=== PATIENT | female | born 1950 | race Hispanic/Latino ===

== ENCOUNTER 2019-06-14 11:52 | Observation (INO) | payer MEDICARE ==
--- NOTE | 2019-06-14 14:26 | XRay Report ---
CHEST 1 VIEW INDICATION: chest pain. COMPARISON: None at this facility FINDINGS: Support devices: None. Heart: Moderate cardiomegaly. A pericardial effusion cannot be excluded. Lungs/Pleura: There is moderate central pulmonary venous congestion. The lungs are grossly clear. No large pleural effusion, consolidation or pneumothorax is identified. Additional findings: None. IMPRESSION: Cardiomegaly and pulmonary venous congestion. Signer Name: Gautam Michele Jr, MD Signed: 06/14/2019 2:21 PM Workstation Name: [id number]
[2019-06-14 14:28] LABS: Mean Corpuscular HGB Conc 29 % (30-34); Mean Corpuscular Volume 70 fl (79-97); Platelet Count 122 K/mm3 (140-440); Red Blood Count 4.05 M/mm3 (3.65-5.03)
[2019-06-14 14:36] LABS: Hematocrit 28.4 % (30.3-42.9); Hemoglobin 8.2 gm/dl (10.1-14.3); Red Cell Distribution Width 26.1 % (13.2-15.2)
[2019-06-14 14:38] LABS: INR 1.3 (0.87-1.13)
[2019-06-14 14:51] LABS: Partial Thromboplastin Time 47.6 Sec. (24.2-36.6)
[2019-06-14 14:55] LABS: BUN/Creatinine Ratio 34; Blood Urea Nitrogen 17 mg/dL (7-17); Calcium 8.5 mg/dL (8.4-10.2); Hemolysis Index 13
[2019-06-14 15:10] LABS: Anisocytosis 2+; Basophils % (Manual) 0 % (0.0-1.8); Hypochromasia 2+; Total Cells Counted 100
[2019-06-14 15:11] LABS: Platelet Estimate Consistent w Auto; Target Cells Few
--- NOTE | 2019-06-14 16:37 | Emergency Department Report ---
ED Chest Pain HPI - General Chief Complaint: Chest Pain Stated Complaint: CHEST PAIN Time Seen by Provider: 06/14/19 13:28 Source: EMS Mode of arrival: Stretcher Limitations: Other - History of Present Illness Initial Comments: 69-year-old [facility]. Patient states pain has been ongoing for 3 days. History is limited due to some expressive aphasia secondary to previous CVA. Patient denies any shortness of breath. MD Complaint: chest pain -: days(s) (3) Onset: during rest Pain Location: left chest Pain Radiation: none Severity scale (0 -10): 5 Quality: other (unable to describe) re: denies: vomting, dyspnea Other Symptoms: denies: cough - Related Data Home Medications Medication Instructions Recorded Confirmed Last Taken Apixaban [Eliquis] 2.5 mg PO BID 06/14/19 06/14/19 Unknown Carvedilol [Coreg] 6.25 mg PO QDAY 06/14/19 06/14/19 Unknown Furosemide [Lasix] 20 mg PO QDAY 06/14/19 06/14/19 Unknown Gabapentin [Neurontin] 300 mg PO Q8HR 06/14/19 06/14/19 Unknown Insulin Aspart [Novolog] 200 units SQ QPM 06/14/19 06/14/19 06/13/19 Losartan [Cozaar] 100 mg PO QDAY 06/14/19 06/14/19 Unknown Midodrine [Proamatine] 5 mg PO TID 06/14/19 06/14/19 Unknown Pantoprazole [Protonix] 40 mg PO QDAY 06/14/19 06/14/19 Unknown Potassium Chloride [K-Dur] 10 meq PO QDAY 06/14/19 06/14/19 Unknown levETIRAcetam [Keppra TAB] 500 mg PO BID 06/14/19 06/14/19 Unknown Allergies Allergy/AdvReac Type Severity Reaction Status Date / Time aspirin Allergy Unknown Verified 06/14/19 12:03 Heart Score - HEART Score History: Slightly suspicious EKG: Non-specific Age: 45-65 Risk factors: 1-2 risk factors Troponin: < normal limit HEART Score: 3 ED Review of Systems ROS: Stated complaint: CHEST PAIN Other details as noted in HPI Comment: All other systems reviewed and negative Constitutional: denies: fever Respiratory: denies: shortness of breath Cardiovascular: chest pain ED Past Medical Hx - Past Medical History Hx Congestive Heart Failure: Yes Hx Seizures: Yes Additional medical history: afib - Social History Smoking Status: Never Smoker - Medications Home Medications: Home Medications Medication Instructions Recorded Confirmed Last Taken Type Apixaban [Eliquis] 2.5 mg PO BID 06/14/19 06/14/19 Unknown History Carvedilol [Coreg] 6.25 mg PO QDAY 06/14/19 06/14/19 Unknown History Furosemide [Lasix] 20 mg PO QDAY 06/14/19 06/14/19 Unknown History Gabapentin [Neurontin] 300 mg PO Q8HR 06/14/19 06/14/19 Unknown History Insulin Aspart [Novolog] 200 units SQ QPM 06/14/19 06/14/19 06/13/19 History Losartan [Cozaar] 100 mg PO QDAY 06/14/19 06/14/19 Unknown History Midodrine [Proamatine] 5 mg PO TID 06/14/19 06/14/19 Unknown History Pantoprazole [Protonix] 40 mg PO QDAY 06/14/19 06/14/19 Unknown History Potassium Chloride [K-Dur] 10 meq PO QDAY 06/14/19 06/14/19 Unknown History levETIRAcetam [Keppra TAB] 500 mg PO BID 06/14/19 06/14/19 Unknown History ED Physical Exam - General Limitations: Other General appearance: alert, in no apparent distress - Head Head exam: Present: atraumatic, normocephalic - Eye Eye exam: Present: normal appearance, PERRL, EOMI - ENT ENT exam: Present: mucous membranes moist - Neck Neck exam: Present: normal inspection - Respiratory Respiratory exam: Present: normal lung sounds bilaterally. Absent: respiratory distress - Cardiovascular Cardiovascular Exam: Present: regular rate, normal rhythm - GI/Abdominal GI/Abdominal exam: Present: soft. Absent: distended, tenderness - Neurological Exam Neurological exam: Present: alert. Absent: CN II-XII intact (expressive aphasia present) - Psychiatric Psychiatric exam: Present: normal affect, normal mood - Skin Skin exam: Present: warm, dry, intact, normal color ED Course Vital Signs 06/14/19 06/14/19 06/14/19 12:03 12:16 16:25 Temperature 98.5 F 98.3 F 98.0 F Pulse Rate 77 64 58 L Respiratory 19 25 H 18 Rate Blood Pressure 138/80 Blood Pressure 109/53 143/66 [Left] O2 Sat by Pulse 97 97 99 Oximetry 06/14/19 06/14/19 16:53 20:27 Temperature 97.7 F Pulse Rate 68 Respiratory 20 Rate Blood Pressure 126/66 Blood Pressure [Left] O2 Sat by Pulse 98 98 Oximetry ED Medical Decision Making - Lab Data Result diagrams: 06/14/19 14:14 06/14/19 14:14 - EKG Data -: EKG Interpreted by Pr EKG shows normal: axis, QRS complexes, ST-T waves Rate: normal - EKG Data Interpretation: other (Afib present) - Radiology Data Radiology results: report reviewed, image reviewed - Medical Decision Making - pt reports chest pain x 3 days - hx of [facility] - EKG shows Afib (which is chronic) and no ST changes - trop negative -vitals normal - will admit to hospitalist for further evaluation - Differential Diagnosis ACS, pulm edema, pneumonia Critical care attestation.: If time is entered above; I have spent that time in minutes in the direct care of this critically ill patient, excluding procedure time. ED Disposition Clinical Impression: Acute chest pain Disposition: DC-09 OP ADMIT IP TO THIS HOSP Is pt being admited?: Yes Condition: Stable Time of Disposition: 16:37
[2019-06-14] MEDS ORDERED: SODIUM CHLORIDE FLUSH SYRINGE 10 ML IV PRN (21:12)
[2019-06-14] MEDS ORDERED: TYLENOL PO PRN (21:12)
[2019-06-14] MEDS ORDERED: DILAUDID IV PRN (21:12)
[2019-06-14] MEDS ORDERED: ZOFRAN IV PRN (21:12)
[2019-06-14] MEDS ORDERED: NACL 0.9% 1000 ML 1,000 ML IV SCH (22:00)
[2019-06-14] MEDS: PEPCID IV SCH (22:26)
[2019-06-14] MEDS: PROTONIX PO SCH (22:26)
[2019-06-14] MEDS: LASIX PO SCH (22:27)
[2019-06-14] MEDS: COREG PO SCH (22:27)
[2019-06-14] MEDS: ELIQUIS PO SCH (22:27)
[2019-06-14] MEDS: KEPPRA PO SCH (22:27)
[2019-06-14] MEDS: K-DUR PO SCH (22:27)
[2019-06-14] MEDS: NEURONTIN PO SCH (22:27)
[2019-06-15] MEDS: HumaLOG SUB-Q SCH ×5 (00:38→21:57)
[2019-06-15] MEDS: SODIUM CHLORIDE FLUSH SYRINGE 10 ML IV SCH ×3 (01:06→21:57)
[2019-06-15] MEDS: PERCOCET 5/325 PO PRN ×2 (03:40→10:26)
[2019-06-15] MEDS: COZAAR PO SCH ×2 (03:46→10:18)
--- NOTE | 2019-06-15 04:02 | History and Physical Report ---
CHIEF COMPLAINT: Left-sided chest pain for 3 days. HISTORY OF PRESENT ILLNESS: A 69-year-old female from [facility] with history of hypertension, atrial fibrillation, insulin-dependent diabetes and GERD, comes in for left-sided chest pain of 3 days' duration. Chest pain is intermittent in nature. No diaphoresis, no palpitations. Poor historian. No exacerbating or relieving factors. PAST MEDICAL HISTORY: Significant for hypertension, congestive heart failure, seizure disorder, atrial fibrillation. PAST SURGICAL HISTORY: Unavailable. SOCIAL HISTORY: Does not smoke. FAMILY HISTORY: Hypertension. CURRENT MEDICATIONS: On the chart. REVIEW OF SYSTEMS: Significant for left-sided chest pain of 3 days' duration. Otherwise, review of systems negative. PHYSICAL EXAMINATION: GENERAL: Elderly female, cooperative during examination. VITAL SIGNS: Blood pressure is 143/60, temperature is 98.3, pulse is 64, respirations 25. HEENT: Unremarkable. Pupils equal and reactive. NECK: Supple, no lymphadenopathy, no thyromegaly. LUNGS: Clear to auscultation and percussion. Good air entry. CARDIOVASCULAR: S1, S2 heard. No gallop, no murmur, no rub. Apical impulse in left fifth intercostal space and midclavicular line. ABDOMEN: Soft and benign. No hepatosplenomegaly. No guarding, no rigidity. EXTREMITIES: Good pedal pulses. No pedal edema. CENTRAL NERVOUS SYSTEM: Alert and oriented x 4, nonfocal exam. Slightly dysphagic. LABORATORY DATA: Significant for white count of 4400, H and H is 8.2 and 28.4, platelet count is 122,000. BUN and creatinine is 17 and 0.5. Troponins; first two troponins are negative. EKG shows nonspecific ST-T wave changes. Heart rate of 76 per minute. Chest x-ray shows no acute abnormality. ASSESSMENT AND PLAN: 1. Chest pain, rule out myocardial infarction protocol. Serial Lexiscan in the morning. 2. Insulin-dependent diabetes. Continue insulin and coverage. 3. Hypertension. Continue antihypertensives in the form of losartan. 4. Gastroesophageal reflux disease. Continue Protonix. 5. Peripheral neuropathy. Continue gabapentin. 6. Congestive heart failure. Continue Lasix. 7. Anticoagulation. Continue Eliquis. 8. Deep venous thrombosis prophylaxis is not necessary. JOB# [id number] MATTEO/JOSE
[2019-06-15 05:02] LABS: Hematocrit 26.9 % (30.3-42.9); Hemoglobin 8.2 gm/dl (10.1-14.3); Mean Corpuscular HGB Conc 30 % (30-34); Platelet Count 128 K/mm3 (140-440); Red Blood Count 3.92 M/mm3 (3.65-5.03)
[2019-06-15 05:04] LABS: Mean Corpuscular Volume 69 fl (79-97); Red Cell Distribution Width 25.8 % (13.2-15.2)
[2019-06-15] MEDS: NEURONTIN PO SCH ×3 (05:53→21:56)
[2019-06-15 06:29] LABS: Alanine Aminotransferase 6 units/L (7-56); Albumin 3.2 g/dL (3.9-5); BUN/Creatinine Ratio 30; Blood Urea Nitrogen 15 mg/dL (7-17); Calcium 8.8 mg/dL (8.4-10.2); Hemolysis Index 1
[2019-06-15] MEDS ORDERED: LEXISCAN IV ONE (07:14)
[2019-06-15 07:21] LABS: Basophils % (Manual) 0 % (0.0-1.8); Total Cells Counted 100
[2019-06-15 07:22] LABS: Anisocytosis 2+; Hypochromasia 2+; Target Cells Few
[2019-06-15 07:23] LABS: Platelet Estimate Consistent w Auto
[2019-06-15] MEDS: PEPCID IV SCH (10:17)
[2019-06-15] MEDS: KEPPRA PO SCH ×2 (10:17→21:56)
[2019-06-15] MEDS: COREG PO SCH (10:18)
[2019-06-15] MEDS: PROTONIX PO SCH (10:19)
[2019-06-15] MEDS: ELIQUIS PO SCH ×2 (10:19→21:56)
[2019-06-15] MEDS: K-DUR PO SCH (10:19)
[2019-06-15] MEDS: LASIX PO SCH (10:21)
[2019-06-15] MEDS: PROAMATINE PO SCH ×3 (10:27→21:56)
--- NOTE | 2019-06-15 18:41 | Progress Note ---
Assessment and Plan Assessment and plan: Chest pain daughter at bedside states she was just discharged from [facility] Obtain records Consult cardiology Hypertension Monitor BP Cont Losartan Seizure disorder Cont Keppra Monitor Diabetes mellitus type 2. Fingerstick glucose q ac and hs Atrial fibrillation On Eliquis Full code status Discussed with patient and daughter at bedside. History Interval history: Chest pain Hospitalist Physical - Physical exam Narrative exam: Gen: Not in acute distress, lying in bed, morbidly obese HEENT: Normocephalic, atraumatic Neck: supple, no JVD Heart: S1 and S2 reg, no murmurs, rubs or gallop Lungs: Clear, no crackles, no rhonchi Abd: soft, non tender, non distended, normal BS, Ext: No edema, no clubbing, no cyanosis Neuro: Awake,alert, - Constitutional Vitals: Temp Pulse Resp BP Pulse Ox 98.3 F 74 18 117/64 87 06/15/19 12:01 06/15/19 10:18 06/15/19 12:01 06/15/19 12:01 06/15/19 03:37 Results - Labs CBC & Chem 7: 06/16/19 05:31 06/16/19 05:31 Labs: Laboratory Last Values WBC 4.4 K/mm3 (4.5-11.0) L 06/15/19 04:04 RBC 3.92 M/mm3 (3.65-5.03) 06/15/19 04:04 Hgb 8.2 gm/dl (10.1-14.3) L 06/15/19 04:04 Hct 26.9 % (30.3-42.9) L 06/15/19 04:04 MCV 69 fl (79-97) L 06/15/19 04:04 MCH 21 pg (28-32) L 06/15/19 04:04 MCHC 30 % (30-34) 06/15/19 04:04 RDW 25.8 % (13.2-15.2) H 06/15/19 04:04 Plt Count 128 K/mm3 (140-440) L 06/15/19 04:04 Add Manual Diff Complete 06/15/19 04:04 Total Counted 100 06/15/19 04:04 Seg Neuts % (Manual) 65.0 % (40.0-70.0) 06/15/19 04:04 0 % 06/15/19 04:04 29.0 % (13.4-35.0) 06/15/19 04:04 Reactive Lymphs % (Man) 0 % 06/15/19 04:04 3.0 % (0.0-7.3) 06/15/19 04:04 3.0 % (0.0-4.3) 06/15/19 04:04 0 % (0.0-1.8) 06/15/19 04:04 0 % 06/15/19 04:04 0 % 06/15/19 04:04 0 % 06/15/19 04:04 0 % 06/15/19 04:04 Nucleated RBC % Not Reportable 06/15/19 04:04 Seg Neutrophils # Man 2.9 K/mm3 (1.8-7.7) 06/15/19 04:04 Band Neutrophils # 0.0 K/mm3 06/15/19 04:04 1.3 K/mm3 (1.2-5.4) 06/15/19 04:04 Abs React Lymphs (Man) 0.0 K/mm3 06/15/19 04:04 0.1 K/mm3 (0.0-0.8) 06/15/19 04:04 0.1 K/mm3 (0.0-0.4) 06/15/19 04:04 0.0 K/mm3 (0.0-0.1) 06/15/19 04:04 0.0 K/mm3 06/15/19 04:04 0.0 K/mm3 06/15/19 04:04 0.0 K/mm3 06/15/19 04:04 Blast Cells # 0.0 K/mm3 06/15/19 04:04 WBC Morphology Not Reportable 06/15/19 04:04 Hypersegmented Neuts Not Reportable 06/15/19 04:04 Hyposegmented Neuts Not Reportable 06/15/19 04:04 Hypogranular Neuts Not Reportable 06/15/19 04:04 Not Reportable 06/15/19 04:04 Not Reportable 06/15/19 04:04 Not Reportable 06/15/19 04:04 Not Reportable 06/15/19 04:04 Not Reportable 06/15/19 04:04 Not Reportable 06/15/19 04:04 Consistent w auto 06/15/19 04:04 Not Reportable 06/15/19 04:04 Plt Clumps, EDTA Not Reportable 06/15/19 04:04 Not Reportable 06/15/19 04:04 Not Reportable 06/15/19 04:04 Not Reportable 06/15/19 04:04 Plt Morphology Comment Not Reportable 06/15/19 04:04 RBC Morphology Not Reportable 06/15/19 04:04 Dimorphic RBCs Not Reportable 06/15/19 04:04 Not Reportable 06/15/19 04:04 2+ 06/15/19 04:04 Not Reportable 06/15/19 04:04 2+ 06/15/19 04:04 Not Reportable 06/15/19 04:04 Not Reportable 06/15/19 04:04 Not Reportable 06/15/19 04:04 Not Reportable 06/15/19 04:04 Not Reportable 06/15/19 04:04 Few 06/15/19 04:04 Not Reportable 06/15/19 04:04 Not Reportable 06/15/19 04:04 Not Reportable 06/15/19 04:04 Not Reportable 06/15/19 04:04 Not Reportable 06/15/19 04:04 Not Reportable 06/15/19 04:04 Not Reportable 06/15/19 04:04 Not Reportable 06/15/19 04:04 Not Reportable 06/15/19 04:04 Acanthocytes (Spur) Not Reportable 06/15/19 04:04 Rouleaux Not Reportable 06/15/19 04:04 Not Reportable 06/15/19 04:04 Not Reportable 06/15/19 04:04 Not Reportable 06/15/19 04:04 Not Reportable 06/15/19 04:04 Hem Pathologist Commnt No 06/15/19 04:04 PT 15.9 Sec. (12.2-14.9) H 06/14/19 14:14 INR 1.30 (0.87-1.13) H 06/14/19 14:14 APTT 47.6 Sec. (24.2-36.6) H 06/14/19 14:14 577.97 ng/mlDDU (0-234) H 06/15/19 12:26 Sodium 147 mmol/L (137-145) H 06/15/19 04:04 Potassium 4.4 mmol/L (3.6-5.0) 06/15/19 04:04 Chloride 102.7 mmol/L (98-107) 06/15/19 04:04 Carbon Dioxide 35 mmol/L (22-30) H 06/15/19 04:04 14 mmol/L 06/15/19 04:04 BUN 15 mg/dL (7-17) 06/15/19 04:04 0.5 mg/dL (0.7-1.2) L 06/15/19 04:04 Estimated GFR > 60 ml/min 06/15/19 04:04 30 % 06/15/19 04:04 Glucose 104 mg/dL (65-100) H 06/15/19 04:04 5.9 % (4-6) 06/14/19 23:08 Calcium 8.8 mg/dL (8.4-10.2) 06/15/19 04:04 0.40 mg/dL (0.1-1.2) 06/15/19 04:04 AST 12 units/L (5-40) 06/15/19 04:04 ALT 6 units/L (7-56) L 06/15/19 04:04 64 units/L (35-129) 06/15/19 04:04 < 0.010 ng/mL (0.00-0.029) 06/15/19 04:04 7.2 g/dL (6.3-8.2) 06/15/19 04:04 3.2 g/dL (3.9-5) L 06/15/19 04:04 0.8 % 06/15/19 04:04 Active Medications - Current Medications Current Medications: Generic Name Dose Route Start Last Admin Trade Name Freq PRN Reason Stop Dose Admin Acetaminophen 650 mg 06/14/19 21:12 Tylenol PO Q4H PRN Pain MILD(1-3)/Fever >100.5/PERRY Apixaban 2.5 mg 06/14/19 22:00 06/15/19 10:19 Eliquis PO 2.5 mg BID THONY Administration Protocol Carvedilol 6.25 mg 06/14/19 22:00 06/15/19 10:18 Coreg PO 6.25 mg QDAY THONY Administration Furosemide 20 mg 06/14/19 22:00 06/15/19 10:21 Lasix PO 20 mg QDAY THONY Administration Gabapentin 300 mg 06/14/19 22:00 06/15/19 05:53 Neurontin PO 300 mg Q8HR THONY Administration Hydromorphone HCl 0.5 mg 06/14/19 21:12 Dilaudid IV Q3H PRN Pain , Severe (7-10) Insulin Human Lispro 0 unit 06/14/19 22:00 06/15/19 08:00 Humalog SUB-Q Not Given ACHS [facility] Protocol Levetiracetam 500 mg 06/14/19 22:00 06/15/19 10:17 Keppra PO 500 mg BID THONY Administration Losartan Potassium 100 mg 06/14/19 21:15 06/15/19 10:18 Cozaar PO 100 mg QDAY THONY Administration Midodrine 5 mg 06/15/19 08:00 06/15/19 10:27 Proamatine PO 5 mg TID THONY Administration Ondansetron HCl 4 mg 06/14/19 21:12 Zofran IV Q8H PRN Nausea And Vomiting Oxycodone/Acetaminophen 1 tab 06/14/19 21:12 06/15/19 10:26 Percocet 5/325 PO 1 tab Q6H PRN Administration Pain, Moderate (4-6) Pantoprazole Sodium 40 mg 06/14/19 22:00 06/15/19 10:19 Protonix PO 40 mg QDAY THONY Administration Potassium Chloride 10 meq 06/14/19 22:00 06/15/19 10:19 K-Dur PO 10 meq QDAY THONY Administration Sodium Chloride 10 ml 06/14/19 22:00 06/15/19 10:20 Sodium Chloride Flush Syringe 10 Ml IV 10 ml BID THONY Administration Sodium Chloride 10 ml 06/14/19 21:12 Sodium Chloride Flush Syringe 10 Ml IV PRN PRN LINE FLUSH Nutrition/Malnutrition Assess - Dietary Evaluation Nutrition/Malnutrition Findings: Nutrition Notes Start: 06/15/19 17:29 Freq: Status: Active Protocol: Document 06/15/19 17:29 RM (Rec: 06/15/19 18:00 RM [id number]) Nutrition Notes 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 Dev 15 points. Pt confused at time of visit. Per tech pt is eating 100% of her meals. Percent of energy/protein needs met: 100%/100% Burn Absent Trauma Absent #1 Nutrition Diagnosis Increased nutrient needs ( specify in comment below) Comments: glutamine, arginine Etiology wound healing As Evidenced by Signs and Symptoms L & R leg wounds Is patient on ventilator? No Is Patient Ambulatory and/or Out of Bed No REE-([facility]-confined to bed) 2488.488 Kcal/Kg value to use for calculation 13 Approximate Energy Requirements Using 1986 kcal/Kg Calculation Used for Recommendations Kcal/kg Additional Notes Protein Needs: 71-89g (1.2-1. 5g/kg IBW) Fluid Needs: 1 ml/kcal Nutrition Intervention Change Diet Order: Cardiac/Consistent CHO Add Supplement/Snack (indicate name/kcal Julio César BID /protein ) Provides kCal: 190 Provides Protein (gm) 5 Goal #1 Continue to meet at least 75% of calorie and protein needs via PO intakes Goal #2 Julio César intake Anticipated Discharge Needs: Cardiac/Consistent CHO diet Follow-Up By: 06/17/19 Additional Comments Follow to confirm PO intake, Julio César intakes
[2019-06-16] MEDS: NEURONTIN PO SCH (05:06)
[2019-06-16 06:20] LABS: BUN/Creatinine Ratio 30; Blood Urea Nitrogen 12 mg/dL (7-17); Calcium 8.4 mg/dL (8.4-10.2); Hemolysis Index 37
[2019-06-16 06:38] LABS: Hematocrit 26.7 % (30.3-42.9); Hemoglobin 8.1 gm/dl (10.1-14.3); Mean Corpuscular HGB Conc 31 % (30-34); Platelet Count 124 K/mm3 (140-440); Red Blood Count 3.88 M/mm3 (3.65-5.03)
[2019-06-16 06:39] LABS: Mean Corpuscular Volume 69 fl (79-97); Red Cell Distribution Width 25.9 % (13.2-15.2)
[2019-06-16] MEDS: HumaLOG SUB-Q SCH ×2 (08:00→12:00)
[2019-06-16] MEDS: COZAAR PO SCH (10:39)
[2019-06-16] MEDS: PROTONIX PO SCH (10:40)
[2019-06-16] MEDS: LASIX PO SCH (10:40)
[2019-06-16] MEDS: ELIQUIS PO SCH (10:40)
[2019-06-16] MEDS: COREG PO SCH (10:40)
[2019-06-16] MEDS: KEPPRA PO SCH (10:40)
[2019-06-16] MEDS: K-DUR PO SCH (10:40)
[2019-06-16] MEDS: SODIUM CHLORIDE FLUSH SYRINGE 10 ML IV SCH (10:43)
[2019-06-16] MEDS: PROAMATINE PO SCH (10:46)
--- NOTE | 2019-06-16 13:43 | Consultation ---
History of Present Illness Consult date: 06/16/19 Consult reason: chest pain History of present illness: This is a morbidly obese woman with confusion. History is unobtainable. Review of chart reports a history of chronic diastolic congestive heart failure and chronic atrial fibrillation. She is on low dose Eliquis for oral anticoagulation. Her latest ischemic cardiac evaluation was done in 2008. Patient underwent a cardiac cath that showed normal coronaries, ejection fraction 40-50%. Of note, patient was just discharged from [facility]. During that admission an echocardiogram showed a normal left ventricular systolic function, ejection fraction greater than 55%. Co-morbidites includes prior CVA, Diabetes and hypotension on Midodrine for management. The patient was sent from the [facility] with reports of chest pain. Cycled troponins were normal and her ECG is atrial fibrillation with a well controlled ventricular rate. Patient was admitted by the hospitalist team and was ordered to have a persantine thallium stress test. This was canceled as patient abdominal girth exceeds the width for the camera. Cardiac consultation has been requested. Today, patient is resting comfortably with confusion. She denies chest pain and shortness of breath. Afib with a well controlled ventricular rate on telemetry strips. Medications and Allergies Allergies Allergy/AdvReac Type Severity Reaction Status Date / Time aspirin Allergy Unknown Verified 06/14/19 12:03 Home Medications Medication Instructions Recorded Confirmed Last Taken Type Apixaban [Eliquis] 2.5 mg PO BID 06/14/19 06/14/19 Unknown History Carvedilol [Coreg] 6.25 mg PO QDAY 06/14/19 06/14/19 Unknown History Furosemide [Lasix] 20 mg PO QDAY 06/14/19 06/14/19 Unknown History Gabapentin [Neurontin] 300 mg PO Q8HR 06/14/19 06/14/19 Unknown History Insulin Aspart [Novolog] 200 units SQ QPM 06/14/19 06/14/19 06/13/19 History Losartan [Cozaar] 100 mg PO QDAY 06/14/19 06/14/19 Unknown History Midodrine [Proamatine] 5 mg PO TID 06/14/19 06/14/19 Unknown History Pantoprazole [Protonix] 40 mg PO QDAY 06/14/19 06/14/19 Unknown History Potassium Chloride [K-Dur] 10 meq PO QDAY 06/14/19 06/14/19 Unknown History levETIRAcetam [Keppra TAB] 500 mg PO BID 06/14/19 06/14/19 Unknown History Active Meds: Active Medications Acetaminophen (Tylenol) 650 mg PO Q4H PRN PRN Reason: Pain MILD(1-3)/Fever >100.5/PERRY Apixaban (Eliquis) 2.5 mg PO BID [facility]; Protocol Last Admin: 06/16/19 10:40 Dose: 2.5 mg Documented by: Carvedilol (Coreg) 6.25 mg PO QDAY [facility] Last Admin: 06/16/19 10:40 Dose: 6.25 mg Documented by: Furosemide (Lasix) 20 mg PO QDAY [facility] Last Admin: 06/16/19 10:40 Dose: 20 mg Documented by: Gabapentin (Neurontin) 300 mg PO Q8HR [facility] Last Admin: 06/16/19 05:06 Dose: 300 mg Documented by: Hydromorphone HCl (Dilaudid) 0.5 mg IV Q3H PRN PRN Reason: Pain , Severe (7-10) Insulin Human Lispro (Humalog) 0 unit SUB-Q ACHS [facility]; Protocol Last Admin: 06/16/19 08:00 Dose: Not Given Documented by: Levetiracetam (Keppra) 500 mg PO BID [facility] Last Admin: 06/16/19 10:40 Dose: 500 mg Documented by: Losartan Potassium (Cozaar) 100 mg PO QDAY [facility] Last Admin: 06/16/19 10:39 Dose: 100 mg Documented by: Midodrine (Proamatine) 5 mg PO TID [facility] Last Admin: 06/16/19 10:46 Dose: 5 mg Documented by: Ondansetron HCl (Zofran) 4 mg IV Q8H PRN PRN Reason: Nausea And Vomiting Oxycodone/Acetaminophen (Percocet 5/325) 1 tab PO Q6H PRN PRN Reason: Pain, Moderate (4-6) Last Admin: 06/15/19 10:26 Dose: 1 tab Documented by: Pantoprazole Sodium (Protonix) 40 mg PO QDAY [facility] Last Admin: 06/16/19 10:40 Dose: 40 mg Documented by: Potassium Chloride (K-Dur) 10 meq PO QDAY [facility] Last Admin: 06/16/19 10:40 Dose: 10 meq Documented by: Sodium Chloride (Sodium Chloride Flush Syringe 10 Ml) 10 ml IV BID [facility] Last Admin: 06/16/19 10:43 Dose: 10 ml Documented by: Sodium Chloride (Sodium Chloride Flush Syringe 10 Ml) 10 ml IV PRN PRN PRN Reason: LINE FLUSH Physical Examination Vital Signs Temp Pulse Resp BP Pulse Ox 98.5 F 77 19 109/53 97 06/14/19 12:03 06/14/19 12:03 06/14/19 12:03 06/14/19 12:03 06/14/19 12:03 General appearance: no acute distress, obese HEENT: Positive: PERRL Cardiac: Positive: irregularly irregular Lungs: Positive: Decreased Breath Sounds Results 06/16/19 05:31 06/16/19 05:31 CBC 06/16/19 Range/Units 05:31 WBC 4.8 (4.5-11.0) K/mm3 RBC 3.88 (3.65-5.03) M/mm3 Hgb 8.1 L (10.1-14.3) gm/dl Hct 26.7 L (30.3-42.9) % Plt Count 124 L (140-440) K/mm3 Comprehensive Metabolic Panel 06/16/19 Range/Units 05:31 Sodium 139 D (137-145) mmol/L Potassium 4.4 (3.6-5.0) mmol/L Chloride 100.2 (98-107) mmol/L Carbon Dioxide 32 H (22-30) mmol/L BUN 12 (7-17) mg/dL Creatinine 0.4 L (0.7-1.2) mg/dL Glucose 76 (65-100) mg/dL Calcium 8.4 (8.4-10.2) mg/dL Assessment and Plan Chest pain, atypical Anemia Thrombocytopenia Chronic CHF-diastolic EF greater than 55% on an echocardiogram done a week ago at [facility]. Hypotension, chronic on midodrine Prior CVA Diabetes Chronic Afib -on eliquis
--- NOTE | 2019-06-16 15:16 | Discharge Summary ---
Providers - Providers Date of Admission: 06/14/19 17:38 Date of discharge: 06/16/19 Attending physician: JOAO BLEDSOE 06/15/19 18:43 Consult to Physician [CONS] Routine Comment: Consulting Provider: PELON RODGERS Physician Instructions: Reason For Exam: Chest pain Primary care physician: NICHOL KRAMER Hospitalization Condition: Fair Disposition: DC/[place]-03 SNF [facility] CERT Core Measure Documentation - Palliative Care Palliative Care/ Comfort Measures: Not Applicable - Core Measures Any of the following diagnoses?: none Exam - Constitutional Vitals: Temp Pulse Resp BP Pulse Ox 98.3 F 78 18 117/56 97 06/16/19 07:41 06/16/19 10:40 06/16/19 07:41 06/16/19 07:41 06/16/19 03:45 Plan Activity: advance as tolerated Diet: low fat, low cholesterol, low salt Plan of Treatment: 1.Follow up with Physician at SNF in 1 week Assessment: Chest pain, non-cardiac, due to GERD Follow up with: NICHOL KRAMER MD [Primary Care Provider] - 3-5 Days
[2019-06-16 19:52] VITALS: BP 142/68
== END 2019-06-16 19:20 ==
LOC: ED 11:52 → 4A 17:38
PROVIDERS: ADMIT Internal Medicine; ATTEND Internal Medicine
DX: R07.89 Other chest pain (principal); I11.0 Hypertensive heart disease with heart failure; I50.9 Heart failure, unspecified; K21.9 Gastro-esophageal reflux disease without esophagitis; E11.43 Type 2 diabetes mellitus with diabetic autonomic (poly)neuropathy; I48.91 Unspecified atrial fibrillation; G40.909 Epilepsy, unspecified, not intractable, without status epilepticus
CPT/HCPCS: 36415; 71045; 80048; 80053; 82962; 83036; 84484; 85007; 85025; 85027; 85379; 85610; 85730; 93005; 93010; 96374; 96376; 99284; G0378; J2785; J7030